=== PATIENT | male | born 1965 | race Caucasian/White ===

== ENCOUNTER 2017-12-17 01:15 | Observation (INO) | payer MEDICAID, OTHER ==
[~2017-12-17] VITALS: Ht 157.5 cm; Wt 69.0 kg
[2017-12-17] VITALS (9 sets, daily range): BP systolic 92–117; BP diastolic 55–82; PULSE 68–86; RESP 14–18; TEMP 98.7; O2SAT 95–98
[~2017-12-17 01:15] MED LIST: SULF-154 PO
[2017-12-17] MEDS ORDERED: ASPI-516 CHEW (01:24)
--- NOTE | 2017-12-17 01:37 | PD ---
HPI Chief Complaint: Chest Pain Time Seen by Provider: 01:35 Travel History International Travel<30 days: No Contact w/Intl Traveler<30days: No Traveled to known affect area: No History of Present Illness HPI The patient is a 52 year old male who presents to the [facility] emergency department with a history of chest pain that occurred earlier in the evening while he was sitting and resting. He reports that the chest pain was in the center of his chest and lasted for 10 minutes. He reports that he had associated shortness of breath, nausea and vomiting 1, and diaphoresis. He denies having any radiation of the pain. He reports that the pain was sharp in character. He reports having a prior history of silent myocardial infarction that was identified on a stress test that he had previously. He denies following with a dog handler or primary care physician. He does not take aspirin on a regular basis. The patient is chest pain-free on arrival. The patient denies having any known history of hyperlipidemia, hypertension, or diabetes mellitus. He does report smoking 1 pack of cigarettes per day. He denies having any prior history of DVT or PE. On review of systems otherwise, the patient denies having any known recent fevers, cough or congestion, neck pain, abdominal pain, diarrhea, urinary symptoms, or neurologic symptoms. PFSH Past Medical History Narrative Medical The patient reports a past medical history of silent myocardial infarction, tobacco use Diminished Hearing: No Myocardial Infarction: Yes Past Surgical History Narrative Surgical The patient denies having any past surgical history. Social History Alcohol Use: No Tobacco Use: Yes (1 PPD) Substance Use: No Allergies-Medications (Allergen,Severity, Reaction): Coded Allergies: No Known Allergies (Unverified Adverse Reaction, Unknown, 12/17/17) Reported Meds & Prescriptions Reported Meds & Active Scripts Active Reported Aspirin 81 Mg Chew 81 Mg CHEW DAILY Review of Systems Except as stated in HPI: all other systems reviewed are Neg General / Constitutional: No: Fever Eyes: No: Visual changes HENT: No: Headaches Cardiovascular: Positive: Chest Pain or Discomfort, Diaphoresis, Dyspnea on exertion Respiratory: Positive: Shortness of Breath Gastrointestinal: Positive: Nausea, Vomiting, No: Abdominal Pain Genitourinary: No: Dysuria Musculoskeletal: No: Pain Skin: No Rash Neurologic: No: Weakness Psychiatric: No: Depression Endocrine: No: Polydipsia Hematologic/Lymphatic: No: Easy Bruising Physical Exam Narrative General: The patient is a well-developed well-nourished male in no acute distress. Head and Neck exam: Head is normocephalic atraumatic. Eyes: EOMI, pupils are equal round and reactive to light. Nose: Midline septum with pink mucous membranes Mouth: Dentition unremarkable. Moist mucus membranes. Posterior oropharynx is not erythematous. No tonsillar hypertrophy. Uvula midline. Airway patent. Neck: No palpable lymphadenopathy. No nuchal rigidity. No thyromegaly. Cardiovascular: Regular rate and rhythm without murmurs, gallops, or rubs. No pulse deficit to the extremities on simultaneous auscultation and palpation of his radial artery. Lungs: Clear to auscultation bilaterally. No wheezes, rhonchi, or rales. Abdomen: Soft, without tenderness to palpation in all 4 quadrants of the abdomen. No guarding, rebound, or rigidity. Normal bowel sounds are audible. No tenderness on palpation of McBurney's point. Negative Agosto sign. Extremities: No clubbing, cyanosis, or edema. 2+ pulses in all 4 extremities. No calf tenderness on palpation. Back: No spinous process tenderness to palpation. No costovertebral angle tenderness to palpation. Neurologic Exam: Grossly nonfocal. Skin Exam: No rash noted. Intact skin that is warm and dry. Data Data Last Documented VS Vital Signs Date Time Temp Pulse Resp B/P (MAP) Pulse Ox O2 Delivery O2 Flow Rate FiO2 12/17/17 02:00 78 16 117/67 (84) 97 Room Air 12/17/17 01:19 98.7 Orders Orders Electrocardiogram (12/17/17 01:35) B-Type Natriuretic Peptide (12/17/17 01:35) Ckmb (Isoenzyme) Profile (12/17/17 01:35) Complete Blood Count With Diff (12/17/17 01:35) Comprehensive Metabolic Panel (12/17/17 01:35) Magnesium (Mg) (12/17/17 01:35) Prothrombin Time / Inr (Pt) (12/17/17 01:35) Act Partial Throm Time (Ptt) (12/17/17 01:35) Troponin I (12/17/17 01:35) Lipase (12/17/17 01:35) Chest, Single Ap (12/17/17 01:35) Ecg Monitoring (12/17/17 01:35) Bilateral Bp Monitoring (12/17/17 01:35) Iv Access Insert/Monitor (12/17/17 01:35) Oximetry (12/17/17 01:35) Oxygen Administration (12/17/17 01:35) Aspirin Chew (Aspirin Chew) (12/17/17 01:45) Nitroglycerin 2% Oint (Nitroglycerin 2% (12/17/17 01:45) Sodium Chloride 0.9% Flush (Ns Flush) (12/17/17 01:45) Admit Order (Ed Use Only) (12/17/17 03:40) Labs Laboratory Tests Test 12/17/17 01:53 White Blood Count 7.0 TH/MM3 Red Blood Count 4.76 MIL/MM3 Hemoglobin 14.7 GM/DL Hematocrit 42.8 % Mean Corpuscular Volume 89.9 FL Mean Corpuscular Hemoglobin 30.8 PG Mean Corpuscular Hemoglobin Concent 34.3 % Red Cell Distribution Width 12.3 % Platelet Count 328 TH/MM3 Mean Platelet Volume 7.3 FL Neutrophils (%) (Auto) 50.4 % Lymphocytes (%) (Auto) 35.7 % Monocytes (%) (Auto) 9.9 % Eosinophils (%) (Auto) 3.4 % Basophils (%) (Auto) 0.6 % Neutrophils # (Auto) 3.5 TH/MM3 Lymphocytes # (Auto) 2.5 TH/MM3 Monocytes # (Auto) 0.7 TH/MM3 Eosinophils # (Auto) 0.2 TH/MM3 Basophils # (Auto) 0.0 TH/MM3 CBC Comment DIFF FINAL Differential Comment Prothrombin Time 9.9 SEC Prothromb Time International Ratio 1.0 RATIO Activated Partial Thromboplast Time 23.6 SEC Blood Urea Nitrogen 12 MG/DL Creatinine 0.89 MG/DL Random Glucose 82 MG/DL Total Protein 6.7 GM/DL Albumin 3.2 GM/DL Calcium Level 8.5 MG/DL Magnesium Level 2.2 MG/DL Alkaline Phosphatase 118 U/L Aspartate Amino Transf (AST/SGOT) 13 U/L Alanine Aminotransferase (ALT/SGPT) 18 U/L Total Bilirubin 0.3 MG/DL Sodium Level 143 MEQ/L Potassium Level 3.7 MEQ/L Chloride Level 105 MEQ/L Carbon Dioxide Level 29.5 MEQ/L Anion Gap 9 MEQ/L Estimat Glomerular Filtration Rate 89 ML/MIN Total Creatine Kinase 65 U/L Troponin I LESS THAN 0.02 NG/ML B-Type Natriuretic Peptide LESS THAN 2 PG/ML Lipase 159 U/L MDM Medical Decision Making Medical Screen Exam Complete: Yes Emergency Medical Condition: Yes Medical Record Reviewed: Yes Differential Diagnosis Acute coronary syndrome, versus pleurisy, versus aortic dissection, versus pneumonia, versus pneumothorax, versus acid reflux. Narrative Course During the course of the patient's emergency department visit, the patient's history, examination, and differential diagnosis were reviewed with the patient. The patient was placed on a air sampling and monitoring with oximetry and frequent blood pressure monitoring. The patient had IV access obtained and blood work sent for analysis. The patient has an EKG done on arrival that shows a sinus rhythm heart rate of 84, QRS duration is 88 ms, QTC is [address] segment elevation is noted. The patient was initially provided the patient was given aspirin 324 mg p.o. 1 , an inch of nitroglycerin paste to the chest wall. The patient's laboratory studies were reviewed and remarkable for a white count of 7, hemoglobin 14.7, platelets 328 with 9.9- monocytes, CMP is remarkable for an AST of 13, alk phos 118, albumin 3.2, lipase within normal limits, initial set of cardiac enzymes within normal limits, BNP is less than 2, PT 9.9, PTT 23.6. Radiology studies were reviewed and remarkable for a chest x-ray that shows no acute cardiopulmonary disease. Given the patient's prior history of reported silent IA and continued smoking, the patient will be admitted to the chest pain center for rule out serial cardiac enzyme protocol, followed by consideration of stress testing The patient's results were discussed with the patient, including the plan of care. I explained that further testing and/ or monitoring is indicated based on the patient's history, examination, and/ or laboratory findings. Therefore, I recommended admission for additional evaluation. The patient expressed understanding and was agreeable with this plan. The patient was admitted to the hospital in stable condition and sent to a bed under the care of the chest pain center. Diagnosis Primary Impression: Chest pain, rule out acute myocardial infarction Admitting Information Admitting Physician Requests: Pascale Ambriz MD December 17, 2017 01:37
[2017-12-17] MEDS ORDERED: NITROGLYCERIN 2% OINT 1 GM PACKET TOP ONE (01:45)
[2017-12-17] MEDS ORDERED: SODIUM CHLORIDE 0.9% FLUSH 10 ML FLUSH IVF PRN (01:45)
[2017-12-17] MEDS ORDERED: ASPIRIN 81 MG CHEW TAB PO ONE (01:45)
--- NOTE | 2017-12-17 02:16 | RADRPT ---
EXAM DATE: 12/17/2017 1:47 AM EDT AGE/SEX: 52 years / Male INDICATIONS: Chest pain. CLINICAL DATA: This is the patient's initial encounter. Patient reports that signs and symptoms have been present for 1 day and indicates a pain score of 4/10. MEDICAL/SURGICAL HISTORY: None. None. COMPARISON: No prior [facility] exams available for comparison. FINDINGS: A single AP view of the chest demonstrates the lungs to be symmetrically aerated without evidence of mass, infiltrate or effusion. The cardiomediastinal contours are unremarkable. Osseous structures a re intact. CONCLUSION: No acute cardiopulmonary disease. Electronically signed by: Mason Kirk MD 12/17/2017 2:14 AM EDT
[2017-12-17 02:44] LABS: AUTOMATED NEUTROPHIL # 3.5 TH/MM3 (1.8-7.7); BASOPHIL % 0.6 % (0.0-2.0); EOSINOPHIL # 0.2 TH/MM3 (0-0.4); EOSINOPHIL % 3.4 % (0.0-4.0); HEMATOCRIT 42.8 % (39.0-51.0); HEMOGLOBIN 14.7 GM/DL (13.0-17.0); LYMPH % 35.7 % (9.0-44.0); LYMPHOCYTE # 2.5 TH/MM3 (1.0-4.8); MEAN CELL VOLUME 89.9 FL (80.0-100.0); MEAN CORPUSCULAR HEMOGLOBIN 30.8 PG (27.0-34.0); MEAN CORPUSCULAR HGB CONC 34.3 % (32.0-36.0); MEAN PLATELET VOLUME 7.3 FL (7.0-11.0); MONO % 9.9 % (0.0-8.0); MONOCYTE # 0.7 TH/MM3 (0-0.9); NEUT % 50.4 % (16.0-70.0); PLATELET COUNT 328 TH/MM3 (150-450); RED BLOOD COUNT 4.76 MIL/MM3 (4.50-5.90); RED CELL DISTRIBUTION WIDTH 12.3 % (11.6-17.2)
[2017-12-17 02:48] LABS: PROTHROMBIN TIME - PATIENT 9.9 SEC (9.8-11.6)
[2017-12-17 02:57] LABS: ALBUMIN 3.2 GM/DL (3.4-5.0); ALT (GPT) 18 U/L (12-78); AST (GOT) 13 U/L (15-37); BICARBONATE 29.5 MEQ/L (21.0-32.0); BLOOD UREA NITROGEN 12 MG/DL (7-18); CALCIUM 8.5 MG/DL (8.5-10.1); CHLORIDE 105 MEQ/L (98-107); CREATININE 0.89 MG/DL (0.60-1.30); GLOMERULAR FILTRATION RATE 89 ML/MIN (>89); GLUCOSE,RANDOM 82 MG/DL (74-106); MAGNESIUM 2.2 MG/DL (1.5-2.5); SODIUM (NA) 143 MEQ/L (136-145)
[2017-12-17 03:01] LABS: ALKALINE PHOSPHATASE 118 U/L (45-117); TOTAL BILIRUBIN ADULT 0.3 MG/DL (0.2-1.0); TOTAL PROTEIN 6.7 GM/DL (6.4-8.2); TROPONIN I LESS THAN 0.02 NG/ML (0.02-0.05)
[2017-12-17] MEDS ORDERED: SODIUM CHLORIDE 0.9% FLUSH 10 ML FLUSH IV FLUSH PRN (05:45)
[2017-12-17] MEDS ORDERED: ACETAMINOPHEN 500 MG CPLT PO PRN (05:45)
[2017-12-17 07:12] LABS: TROPONIN I LESS THAN 0.02 NG/ML (0.02-0.05)
--- NOTE | 2017-12-17 08:29 | HHI.HP ---
HPI Primary Care Physician No Primary Care Physician Chief Complaint Chest pain History of Present Illness This is a 68-year-old male that presents to ED via private vehicle with complaint of 2 episodes of chest discomfort. States that he developed a sharp central chest discomfort about 8:00 last evening while watching television. He was short of breath, nauseous, and diaphoretic with it. Lasted about 10 minutes. Then about 2 hours later it recurred also while sitting at home, this time lasting about a minute or 2. No other associated symptoms on the second episode. At that point he decided to seek treatment after the second episode. Patient states that he had a stress test about a year ago in [facility] that was abnormal that led to a cardiac catheterization that he states was normal. Denies history of hypertension, hyperlipidemia, diabetes, and CAD. Currently denies discomfort in his chest. Denies recent illnesses. Denies fevers or chills. Denies recent travel. (Lionel Landa) History of Present Illness He also complains of a cough over the last week or so with no fever or chills and only slight productive sputum. He also works at manual labor and has had no chest pain or discomfort with exertion. The current discomfort occurred while watching TV but also having "words" with his daughter. (Bob Martins MD) Review of Systems General: Patient denies fevers, chills and recent travel. HEENT: Patient denies headache, sore throat, difficulty swallowing. Cardiovascular: Has the chest discomfort as mentioned above. Denies sensation of heart beating rapidly or irregularly. No syncope. First episode he was diaphoretic. Respiratory: He was short of breath during the first episode. Denies inspirational chest discomfort. Denies coughing wheezing or hemoptysis. GI: He was nauseous for the first episode. Patient denies vomiting, diarrhea, abdominal pain, bloody stools. Musculoskeletal: Patient denies joint pain or edema. Denies calf pain or edema. Neurovascular: Patient denies numbness, tingling, weakness in extremities. Denies headache. Endocrine: Denies polyuria and polydipsia. Hematologic: Denies easy bruising. Skin: Denies rash or itching. (Lionel Landa) Past Family Social History Allergies: Coded Allergies: No Known Allergies (Unverified Allergy, Unknown, 12/17/17) Past Medical History Denies hypertension, hyperlipidemia, diabetes, and CAD. Past Surgical History Denies. Reported Medications Reported Meds & Active Scripts Active Reported Aspirin 81 Mg Chew 81 Mg CHEW DAILY Active Ordered Medications Current Medications Medications (Trade) Dose Ordered Sig/Lashell Route Start Time Stop Time Status Last Admin (NS Flush) 2 ml UNSCH PRN IV FLUSH 12/17/17 05:45 (NS Flush) 2 ml BID IV FLUSH 12/17/17 09:00 (Tylenol) 500 mg Q4H PRN PO 12/17/17 05:45 (Pepcid) 20 mg BID PO 12/17/17 09:00 Family History States that his mother had an AZ in her 70s. Social History Smokes 1 pack a series daily for 38 years. (Lionel Landa) Physical Exam Vital Signs Vital Signs Date Time Temp Pulse Resp B/P (MAP) Pulse Ox O2 Delivery O2 Flow Rate FiO2 12/17/17 08:02 69 16 92/55 (67) 95 Room Air 12/17/17 06:07 71 14 99/66 (77) 96 Room Air 12/17/17 05:46 98 12/17/17 04:00 72 16 101/67 (78) 98 Room Air 12/17/17 02:00 78 16 117/67 (84) 97 Room Air 12/17/17 01:52 98 Room Air 12/17/17 01:51 113/82 (92) 116/76 (89) 12/17/17 01:22 85 18 98 Room Air 12/17/17 01:19 98.7 86 18 113/82 (92) 98 Physical Exam GENERAL: This is a well-nourished, well-developed patient, in no apparent distress. Patient speaks in clear complete sentences. Patient is pleasant. HEENT: Head is atraumatic and normocephalic. Neck is supple without lymphadenopathy and trachea is midline. No JVD or carotid bruits. CARDIOVASCULAR: Regular rate and rhythm without murmurs, gallops, or rubs. RESPIRATORY: Clear to auscultation. Breath sounds equal bilaterally. No wheezes , rales, or rhonchi. Chest wall is tender. No use of accessory muscles. GASTROINTESTINAL: Abdomen is nontender, nondistended. Abdomen soft. No obvious pulsatile mass or bruit. No CVA tenderness. Strong femoral pulses bilaterally. Normal bowel sounds in all quadrants. MUSCULOSKELETAL: Patient is moving upper and lower extremities freely. No calf tenderness or edema, no Homans sign. Strong pulses in upper and lower extremities. NEUROLOGICAL: Patient is alert and oriented. Cranial nerves 2-12 are grossly intact. No focal deficits and speech is clear. SKIN: No rash and turgor is normal. Laboratory Laboratory Tests Test 12/17/17 01:53 12/17/17 06:03 White Blood Count 7.0 Red Blood Count 4.76 Hemoglobin 14.7 Hematocrit 42.8 Mean Corpuscular Volume 89.9 Mean Corpuscular Hemoglobin 30.8 Mean Corpuscular Hemoglobin Concent 34.3 Red Cell Distribution Width 12.3 Platelet Count 328 Mean Platelet Volume 7.3 Neutrophils (%) (Auto) 50.4 Lymphocytes (%) (Auto) 35.7 Monocytes (%) (Auto) 9.9 Eosinophils (%) (Auto) 3.4 Basophils (%) (Auto) 0.6 Neutrophils # (Auto) 3.5 Lymphocytes # (Auto) 2.5 Monocytes # (Auto) 0.7 Eosinophils # (Auto) 0.2 Basophils # (Auto) 0.0 CBC Comment DIFF FINAL Differential Comment Prothrombin Time 9.9 Prothromb Time International Ratio 1.0 Activated Partial Thromboplast Time 23.6 Blood Urea Nitrogen 12 Creatinine 0.89 Random Glucose 82 Total Protein 6.7 Albumin 3.2 Calcium Level 8.5 Magnesium Level 2.2 Alkaline Phosphatase 118 Aspartate Amino Transf (AST/SGOT) 13 Alanine Aminotransferase (ALT/SGPT) 18 Total Bilirubin 0.3 Sodium Level 143 Potassium Level 3.7 Chloride Level 105 Carbon Dioxide Level 29.5 Anion Gap 9 Estimat Glomerular Filtration Rate 89 Total Creatine Kinase 65 60 Troponin I LESS THAN 0.02 LESS THAN 0.02 B-Type Natriuretic Peptide LESS THAN 2 Lipase 159 (Lionel Landa) Result Diagram: 12/17/1715212/17/17152 Imaging Last 48 hours Impressions Chest X-Ray 12/17/17 0135 Signed Impressions: CONCLUSION: Course EKGs are sinus rhythm without significant ST segment depressions or elevations. (Lionel Landa) Caprini VTE Risk Assessment Caprini VTE Risk Assessment: No/Low Risk (score <= 1) Caprini Risk Assessment Model Point Value = 1 Point Value = 2 Point Value = 3 Point Value = 5 Age 41-60 Minor surgery BMI > 25 kg/m2 Swollen legs Varicose veins or History of unexplained or recurrent spontaneous Oral contraceptives or hormone replacement Sepsis (< 1 month) Serious lung disease, including pneumonia (< 1 month) Abnormal pulmonary function Acute myocardial infarction Congestive heart failure (< 1 month) History of inflammatory bowel disease Medical patient at bed rest Age 61-74 Arthroscopic surgery Major open surgery (> 45 min) Laparoscopic surgery (> 45 min) Malignancy Confined to bed (> 72 hours) Immobilizing plaster cast Central venous access Age >= 75 History of VTE Family history of VTE Factor V Leiden Prothrombin [id number] Lupus anticoagulant Anticardiolipin antibodies Elevated serum homocysteine Heparin-induced thrombocytopenia Other congenital or acquired thrombophilia Stroke (< 1 month) Elective arthroplasty Hip, pelvis, or leg fracture Acute spinal cord injury (< 1 month) Prophylaxis Regimen Total Risk Factor Score Risk Level Prophylaxis Regimen 0-1 Low Early ambulation 2 Moderate Order ONE of the following: *Sequential Compression Device (SCD) *Heparin 5000 units SQ BID 3-4 Higher Order ONE of the following medications: *Heparin 5000 units SQ TID *Enoxaparin/Lovenox 40 mg SQ daily (WT < 150 kg, CrCl > 30 mL/min) *Enoxaparin/Lovenox 30 mg SQ daily (WT < 150 kg, CrCl > 10-29 mL/min) *Enoxaparin/Lovenox 30 mg SQ BID (WT < 150 kg, CrCl > 30 mL/min) AND/OR *Sequential Compression Device (SCD) 5 or more Highest Order ONE of the following medications: *Heparin 5000 units SQ TID (Preferred with Epidurals) *Enoxaparin/Lovenox 40 mg SQ daily (WT < 150 kg, CrCl > 30 mL/min) *Enoxaparin/Lovenox 30 mg SQ daily (WT < 150 kg, CrCl > 10-29 mL/min) *Enoxaparin/Lovenox 30 mg SQ BID (WT < 150 kg, CrCl > 30 mL/min) AND *Sequential Compression Device (SCD) (Lionel Landa) Assessment and Plan Assessment and Plan * Chest pain: Patient will have serial cardiac enzymes and EKGs for ruling out purposes. He will be seen by Dr. Martins of cardiology and then further plan will be decided. We are going to attempt to get the records from the facility that he had the abnormal stress test and reported normal heart catheterization a year ago. Patient will need follow-up with PCP. He should return to ED for interval issues. * Tobacco abuse: Patient has been counseled on importance of smoking cessation. Patient is stable at this time. He is agreeable to this plan. (Lionel Landa) Assessment and Plan The patient was presented by Mr. Etienneumeshnatividad and then personally seen and examined. The course was discussed and he has ruled out thus far. I agree with the documentation above and the plan as discussed. We will obtain a nuclear stress and if unchanged will discharge for OP FU. Also advised to stop smoking. (Bob Martins MD) Lionel Landa December 17, 2017 08:29 Bob Martins MD December 17, 2017 09:15
[2017-12-17] MEDS ORDERED: FAMOTIDINE 20 MG TAB PO SCH (09:00)
[2017-12-17] MEDS ORDERED: SODIUM CHLORIDE 0.9% FLUSH 10 ML FLUSH IV FLUSH SCH (09:00)
[2017-12-17 09:24] LABS: TROPONIN I LESS THAN 0.02 NG/ML (0.02-0.05)
[2017-12-17] MEDS ORDERED: REGADENOSON INJ 0.4 MG/5 ML SYR ONE (12:13)
--- NOTE | 2017-12-17 14:07 | RADRPT ---
EXAM DATE: 12/17/2017 1:48 PM EDT AGE/SEX: 52 years / Male INDICATIONS:Angina. . Chest pain and dyspnea. CLINICAL DATA: This is the patient's initial encounter. Patient reports that signs and symptoms have been present for 1 day and indicates a pain score of 4/10. MEDICAL/SURGICAL HISTORY: Hypertension. Smoker. None. COMPARISON: No prior [facility] exams available for comparison. No external comparison. DOSE: 8.5 mCi Tc 99m Myoview at rest 25.4 mCi [id number] at stress 0.4 mg Lexiscan STRESS SYMPTOMS: Flush. EJECTION FRACTION: 55 % TECHNIQUE: The patient underwent pharmacologic stress with infusion of prescribed dose. Continuous ECG tracing was monitored during stress. Gated SPECT imaging was performed after stress and conventi onal SPECT imaging was performed at rest. The examination was performed on a SPECT/CT scanner, both attenuation and non-corrected datasets were reviewed. FINDINGS: Distribution: The maximum perfused segment at stress is in the inferior wall. Perfusion Study: The pattern of perfusion at stress is within normal limits. Gated Study: There are intact wall motion and wall thickening without hypokinetic or dyskinetic segm ents. The ejection fraction is calculated at 55%. RISK CATEGORY: Low (<1% Annual Motality Rate) CONCLUSION: 1. Unremarkable myocardial perfusion exam. Electronically signed by: Masood Rdz MD 12/17/2017 2:05 PM EDT
--- NOTE | 2017-12-17 14:41 | HHI.DCPOC ---
Discharge Care Plan Diagnosis: (1) Chest pain (2) Tobacco abuse Goals to Promote Your Health * To prevent worsening of your condition and complications * To maintain your health at the optimal level Directions to Meet Your Goals Take your medications as prescribed Follow your dietary instruction Follow activity as directed Keep your appointments as scheduled Take your immunizations and boosters as scheduled If your symptoms worsen call your PCP, if no PCP go to Urgent Care Center or Emergency Room Smoking is Dangerous to Your Health. Avoid second hand smoke Call the 24-hour hour crisis hotline for domestic abuse at Lionel Landa December 17, 2017 14:41
--- NOTE | 2017-12-18 15:55 | EKG ---
Date Performed: 12/17/2017 Time Performed: 08:42:56 PTAGE: 52 years EKG: ECTOPIC ATRIAL RHYTHM ABNORMAL RHYTHM ECG Poor R-wave progression but no significant change NO PREVIOUS TRACING DOCTOR: Bob Martins Interpretating Date/Time 12/18/2017 15:54:46
--- NOTE | 2017-12-18 15:56 | EKG ---
Date Performed: 12/17/2017 Time Performed: 06:01:44 PTAGE: 52 years EKG: ECTOPIC ATRIAL RHYTHM ABNORMAL RHYTHM ECG No significant change NO PREVIOUS TRACING DOCTOR: Bob Martins Interpretating Date/Time 12/18/2017 15:55:15
--- NOTE | 2017-12-18 15:57 | EKG ---
Date Performed: 12/17/2017 Time Performed: 01:22:16 PTAGE: 52 years EKG: Normal Sinus rhythm Poor R-wave progression Probably normal tracing NO PREVIOUS TRACING DOCTOR: Bob Martins Interpretating Date/Time 12/18/2017 15:56:52
--- NOTE | 2017-12-18 16:03 | TR ---
Date Performed: 12/17/2017 Time Performed: 12:13:10 DOCTOR: Bob Martins DRUG LIST: CLINICAL HISTORY: ANGINA REASON FOR TEST: REASON FOR ENDING: OBSERVATION: CONCLUSION: Lexiscan stress test was performed under standard four minute protocol. Radionuclide was injected one minute prior to ending the test. No electrocardiographic abormalities were present to suggest ischemia. Nuclear imaging and interpretation are pending. COMMENTS:
== END 2017-12-17 15:56 | disposition home or self-care (01) ==
LOC: NEPE 01:15 → NEDA 03:42 → NEPFCDU 14:35
PROVIDERS: ADMIT Internal Medicine Cardiovascular Disease; ATTEND Internal Medicine Cardiovascular Disease
DX: R07.89 Other chest pain (principal); F17.210 Nicotine dependence, cigarettes, uncomplicated; I25.2 Old myocardial infarction; R94.31 Abnormal electrocardiogram [ECG] [EKG]; Z79.82 Long term (current) use of aspirin; Z82.49 Family history of ischemic heart disease and other diseases of the circulatory system
CPT/HCPCS: 71045; 78452; 80053; 82550; 83690; 83735; 83880; 84484; 85025; 85610; 85730; 93005; 93017; 99285; A9502; G0378; J2785